=== PATIENT | female | born 1960 | race Hispanic/Latino ===

== ENCOUNTER → 2019-01-11 | Outpatient (CLI) | payer BC | END | disposition home or self-care (01) | LOC: SHCH 09:18 | PROVIDERS: ATTEND Internal Medicine Cardiovascular Disease | DX: I82.811 Embolism and thrombosis of superficial veins of right lower extremity (principal) | CPT/HCPCS: 93971 ==

== ENCOUNTER → 2019-02-13 | Outpatient (CLI) | payer BC | END | disposition home or self-care (01) | LOC: SHCH 14:16 | PROVIDERS: ATTEND Internal Medicine Cardiovascular Disease | DX: R00.0 Tachycardia, unspecified (principal); R00.2 Palpitations; R06.09 Other forms of dyspnea | CPT/HCPCS: 93306 ==

== ENCOUNTER → 2019-05-20 | Outpatient (CLI) | payer BC | END | disposition home or self-care (01) | LOC: SHCH 07:29 | PROVIDERS: ATTEND Internal Medicine Cardiovascular Disease | DX: I87.2 Venous insufficiency (chronic) (peripheral) (principal); R60.9 Edema, unspecified | CPT/HCPCS: 93970 ==

== ENCOUNTER 2021-07-31 05:52 | Observation (INO) | payer BC ==
[2021-07-26 12:44] LABS: BASOPHILS % (AUTO) 1.3 % (0.0-5.0); EOSINOPHILS % (AUTO) 2.3 % (0.0-8.0); HEMATOCRIT 36.3 % (36-48); LYMPHOCYTES % (AUTO) 37.5 % (21.0-51.0); MEAN CORPUSCULAR HEMOGLOBIN 26.8 pg (27.0-33.0); MEAN CORPUSCULAR HGB CONC 31.4 g/dL (32.0-36.0); MEAN CORPUSCULAR VOLUME 85.4 fL (79-99); MONOCYTES % (AUTO) 8.7 % (3.0-13.0); NEUTROPHILS % (AUTO) 49.9 % (40.0-77.0); PLATELET COUNT (AUTO) 263 K/uL (130-400); RED BLOOD CELL COUNT(AUTO) 4.25 MIL/uL (4.00-5.50); RED CELL DISTRIBUTION WIDTH 14.1 % (11.0-15.5); WHITE BLOOD COUNT (AUTO) 6.1 K/uL (4.8-10.8)
[2021-07-26 13:02] LABS: INR 0.94 (0.85-1.15); PROTHROMBIN TIME 10.3 SEC (9.6-11.6)
[2021-07-26 13:03] LABS: PARTIAL THROMBOPLASTIN TIME 24.8 SEC (26.3-35.5)
[2021-07-26 13:08] LABS: CREATININE 0.9 mg/dL (0.5-1.5); POTASSIUM 4.1 mmol/L (3.5-5.1)
[2021-07-30 08:51] VITALS: BP 135/67
[2021-07-31] VITALS (26 sets, daily range): BP systolic 110–147; BP diastolic 55–95
[~2021-07-31] VITALS: Ht 152.4 cm; Wt 114.6 kg
[~2021-07-31 05:52] MED LIST: AEC81 PO; CELE200 PO; CETI10CA5 PO; LACTATED RINGERS 1000ML 1,000 ML IV SCH; METO-409 PO; MIRA50TA PO; TAMS-1 PO
[2021-07-31] MEDS ORDERED: CEFAZOLIN SODIUM 1 GM VIAL IVP SCH (06:00)
[2021-07-31] MEDS ORDERED: ROPIVICAINE 250MG+KETOROLAC 15MG+EPINEPHRINE 0.3+CLONIDINE 80 IV PRN ×5 (06:00)
[2021-07-31] MEDS ORDERED: DEXAMETHASONE SOD PHOSPHATE 10MG/ML 1ML VIAL ONE (07:20)
[2021-07-31] MEDS ORDERED: ONDANSETRON 4MG INJ ONE (07:20)
[2021-07-31] MEDS ORDERED: LIDOCAINE PF 100MG/5ML (2%) SYRINGE 5ML ONE (07:20)
[2021-07-31] MEDS ORDERED: SUCCINYLCHOLINE CHLORIDE 20 MG/ML 10 ML VIAL ONE (07:20)
[2021-07-31] MEDS ORDERED: FENTANYL CITRATE PF 50 MCG/1 ML 2ML VIAL ONE (07:20)
[2021-07-31] MEDS ORDERED: ROCURONIUM 10MG/1ML SYR 10 MG/ML ML ONE ×2 (07:20→08:21)
[2021-07-31] MEDS ORDERED: PROPOFOL 10 MG/ML 20ML VIAL IV ONE (07:20)
[2021-07-31] MEDS ORDERED: MIDAZOLAM HCL 1 MG/ML 2ML VIAL ONE (07:20)
[2021-07-31] MEDS ORDERED: ROPIVACAINE 0.5% 5MG/ML 30ML IJ ONE (07:30)
[2021-07-31] MEDS ORDERED: CEFAZOLIN SODIUM 2 GM VIAL IV ONE (07:45)
[2021-07-31] MEDS ORDERED: EPHEDRINE SULFATE 50 MG/ML AMPULE ONE (08:14)
[2021-07-31] MEDS ORDERED: TRANEXAMIC ACID 1000MG/10ML ONE (08:16)
[2021-07-31] MEDS ORDERED: KCL 20 MEQ ERTAB PO PRN (08:30)
[2021-07-31] MEDS ORDERED: FERROUS FUMARATE 324 MG TABLET PO PRN (08:30)
[2021-07-31] MEDS: ACETAMINOPHEN 500 MG TABLET PO SCH ×2 (08:30→17:43)
[2021-07-31] MEDS ORDERED: ONDANSETRON 4MG INJ IVP PRN (08:30)
[2021-07-31] MEDS ORDERED: POTASSIUM CHLORIDE 10% ELIXIR 20 MEQ/15 ML UDCUP PO PRN (08:30)
[2021-07-31] MEDS: 0.9%NACL 1000ML 1,000 ML IV SCH ×2 (08:30→17:43)
[2021-07-31] MEDS ORDERED: POTASSIUM CHLORIDE 20MEQ/100ML 100 ML IV PRN (08:30)
[2021-07-31] MEDS ORDERED: HYDROCODONE/ACETAMINOPHEN 5/325 MG TAB PO PRN (08:30)
[2021-07-31] MEDS ORDERED: LIDOCAINE HCL-MPF 1% 2ML VIAL IV PRN (08:30)
[2021-07-31] MEDS ORDERED: TRANEXAMIC ACID 1000MG/10ML TP ONE (08:32)
[2021-07-31] MEDS: TAMSULOSIN HCL 0.4 MG CAP.ER.24H PO SCH (09:00)
[2021-07-31] MEDS: FAMOTIDINE 20MG TAB PO SCH ×2 (09:00→21:05)
[2021-07-31] MEDS: POLYETHYLENE GLYCOL 3350 17 GM POWD.PACK PO SCH (09:00)
[2021-07-31] MEDS ORDERED: OXYB10TA30 PO (09:11)
[2021-07-31] MEDS ORDERED: GLYCOPYRROLATE 1 MG/5 ML SYRINGE ONE (09:55)
[2021-07-31] MEDS ORDERED: NEOSTIGMINE 5MG/5ML SYR IV ONE (09:55)
[2021-07-31] MEDS ORDERED: MEPERIDINE-PF 25 MG/ML SYG ONE ×2 (10:40→10:51)
[2021-07-31] MEDS: MORPHINE 4 MG SYG IVP PRN ×2 (11:49→17:42)
[2021-07-31] MEDS: CEFAZOLIN SODIUM 1 GM VIAL IVP SCH ×2 (14:48→21:02)
[2021-07-31] MEDS: METOPROLOL SUCCINATE 50 MG TAB.SR.24H PO SCH (21:05)
[2021-08-01] MEDS: ACETAMINOPHEN 500 MG TABLET PO SCH ×4 (00:31→23:58)
[2021-08-01] MEDS: MORPHINE 4 MG SYG IVP PRN ×2 (00:32→14:25)
[2021-08-01] MEDS: 0.9%NACL 1000ML 1,000 ML IV SCH (00:35)
[2021-08-01 04:13] LABS: HEMATOCRIT 29.5 % (36-48); MEAN CORPUSCULAR HGB CONC 31.9 g/dL (32.0-36.0); MEAN CORPUSCULAR VOLUME 84.8 fL (79-99); RED BLOOD CELL COUNT(AUTO) 3.48 MIL/uL (4.00-5.50); RED CELL DISTRIBUTION WIDTH 13.8 % (11.0-15.5); WHITE BLOOD COUNT (AUTO) 11.7 K/uL (4.8-10.8)
[2021-08-01 04:32] LABS: CREATININE 0.8 mg/dL (0.5-1.5)
[2021-08-01 04:36] VITALS: BP 109/60
[2021-08-01] MEDS: ENOXAPARIN SODIUM 30 MG/0.3 ML SQ SCH ×2 (06:00→09:10)
[2021-08-01] MEDS: HYDROCODONE/ACETAMINOPHEN 10/325 MG TAB PO PRN ×2 (06:23→14:01)
[2021-08-01 08:00] VITALS: BP 128/54
[2021-08-01] MEDS: METOPROLOL SUCCINATE 50 MG TAB.SR.24H PO SCH ×2 (09:07→20:12)
[2021-08-01] MEDS: CETIRIZINE HCL 5 MG TABLET PO SCH (09:07)
[2021-08-01] MEDS: ASPIRIN 81 MG EC TAB PO SCH (09:09)
[2021-08-01] MEDS: FAMOTIDINE 20MG TAB PO SCH ×2 (09:09→20:12)
[2021-08-01] MEDS: OXYBUTYNIN 5 MG TAB.SR.24H PO SCH (09:09)
[2021-08-01] MEDS: TAMSULOSIN HCL 0.4 MG CAP.ER.24H PO SCH (09:09)
[2021-08-01] MEDS: CELECOXIB 200 MG CAP PO SCH (09:09)
[2021-08-01] MEDS: POLYETHYLENE GLYCOL 3350 17 GM POWD.PACK PO SCH (09:10)
[2021-08-01 12:00] VITALS: BP 114/63
[2021-08-01 16:00] VITALS: BP 99/55
[2021-08-01 20:11] VITALS: BP 114/65
[2021-08-01 23:40] VITALS: BP 113/59
[2021-08-02] MEDS: MORPHINE 4 MG SYG IVP PRN (00:03)
[2021-08-02 04:00] VITALS: BP 108/52
[2021-08-02 08:00] VITALS: BP 118/66
[2021-08-02] MEDS: CETIRIZINE HCL 5 MG TABLET PO SCH (08:16)
[2021-08-02] MEDS: FAMOTIDINE 20MG TAB PO SCH (08:16)
[2021-08-02] MEDS: ACETAMINOPHEN 500 MG TABLET PO SCH (08:17)
[2021-08-02] MEDS: OXYBUTYNIN 5 MG TAB.SR.24H PO SCH (08:17)
[2021-08-02] MEDS: CELECOXIB 200 MG CAP PO SCH (08:17)
[2021-08-02] MEDS: TAMSULOSIN HCL 0.4 MG CAP.ER.24H PO SCH (08:17)
[2021-08-02] MEDS: METOPROLOL SUCCINATE 50 MG TAB.SR.24H PO SCH (08:17)
[2021-08-02] MEDS: HYDROCODONE/ACETAMINOPHEN 10/325 MG TAB PO PRN ×2 (08:17→13:04)
[2021-08-02] MEDS: ASPIRIN 81 MG EC TAB PO SCH (08:18)
[2021-08-02] MEDS: POLYETHYLENE GLYCOL 3350 17 GM POWD.PACK PO SCH (08:21)
[2021-08-02] MEDS: ENOXAPARIN SODIUM 30 MG/0.3 ML SQ SCH (09:00)
[2021-08-02 12:00] VITALS: BP 97/49
[2021-08-03] MEDS ORDERED: BISACODYL 10 MG SUPP.RECT RC PRN (08:30)
== END 2021-08-02 15:30 | disposition home or self-care (01) ==
LOC: DAH 05:52 → DAHIP 05:53 → 4AH 11:19 → EDSTATUS 14:00
PROVIDERS: ADMIT Orthopaedic Surgery; ATTEND Orthopaedic Surgery
DX: M17.11 Unilateral primary osteoarthritis, right knee (principal); Z20.822 Contact with and (suspected) exposure to COVID-19; E11.9 Type 2 diabetes mellitus without complications; E66.01 Morbid (severe) obesity due to excess calories; Z68.42 Body mass index [BMI] 45.0-49.9, adult; Z79.82 Long term (current) use of aspirin; Z79.899 Other long term (current) drug therapy; Z98.890 Other specified postprocedural states; Z90.710 Acquired absence of both cervix and uterus
CPT/HCPCS: 27447; S2900; 36415; 64447; 76942; 80048; 82948; 85025; 85027; 85610; 85730; 87635; 87641; 96372; 96374; 96375; 96376; 97039; C9803; G0378; J0171; J0330; J0690; J0735; J1100; J1650; J1885; J2001; J2175; J2250; J2270; J2405; J2704; J2710; J2795; J3010; J3490; J7030; J7120